=== PATIENT | male | born 1995 | race Caucasian/White ===

== ENCOUNTER 2018-09-17 11:20 | Emergency (ER) | payer MEDICAID, OTHER ==
[~2018-09-17] VITALS: Ht 177.8 cm; Wt 100.0 kg
[2018-09-17 12:44] LABS: BASOPHILS % (AUTO) 1.4 % (0.0-2.0); EOSINOPHILS % (AUTO) 1.8 % (1.0-6.0); HEMATOCRIT 47.3 % (41-53); HEMOGLOBIN 15.8 g/dL (13.5-17.5); LYMPHOCYTES # (AUTO) 1.5 K/uL (1.0-4.8); LYMPHOCYTES % (AUTO) 28.3 % (22.0-44.0); MEAN CORPUSCULAR HEMOGLOBIN 29.3 pg (26.0-34.0); MEAN CORPUSCULAR HGB CONC 33.4 G/dL (31.0-37.0); MEAN CORPUSCULAR VOLUME 88 fL (80-100); MONOCYTES # (AUTO) 0.3 K/uL (0.1-1.0); MONOCYTES % (AUTO) 6.2 % (2.0-9.0); NEUTROPHILS # (AUTO) 3.4 K/uL (1.8-7.7); NEUTROPHILS % (AUTO) 62.3 % (40.0-70.0); PLATELET COUNT (AUTO) 279 K/uL (150-450); RED BLOOD CELL COUNT(AUTO) 5.38 MIL/uL (4.50-5.90); RED CELL DISTRIBUTION WIDTH 13.5 % (11.5-14.5)
[2018-09-17 12:55] LABS: ANION GAP 7 mmol/L (8-16); CALCIUM, TOTAL 9.2 mg/dL (8.8-10.5); CARBON DIOXIDE 29 mmol/L (22-29); CHLORIDE 104 mmol/L (98-107); CREATININE 0.83 mg/dL (0.60-1.30); GLOMERULAR FILTR. RATE CALC > 60 mL/min (>60); GLUCOSE,RANDOM 106 mg/dL (70-110); POTASSIUM 4.3 mmol/L (3.5-5.1); SODIUM SERUM 140 mmol/L (136-145); UREA NITROGEN, BLOOD 10 mg/dL (7-18)
[2018-09-17 13:01] LABS: ALANINE AMINOTRANSFERASE 89 U/L (12-78); ALKALINE PHOSPHATASE 85 U/L (46-116); ASPARTATE AMINOTRANSFERASE 31 U/L (15-37); BILIRUBIN,TOTAL 0.4 mg/dL (0.1-1.0); LIPASE 87 U/L (73-393); TOTAL PROTEIN, SERUM 7.9 g/dL (6.4-8.2)
[2018-09-17] MEDS ORDERED: PB/HYOSCY/ATR/SCOP/LIDO/MAALOX 55 ML BOTTLE PO ONE (13:30)
[2018-09-17 14:28] VITALS: BP 127/71
== END 2018-09-17 14:30 | disposition home or self-care (01) ==
LOC: EMS 11:20
DX: R10.13 Epigastric pain (principal)

== ENCOUNTER 2023-05-17 10:12 | Emergency (ER) | payer OTHER ==
[~2023-05-17] VITALS: Ht 180.3 cm; Wt 113.6 kg
[2023-05-17 10:17] VITALS: BP 157/93; PULSE 99; RESP 16; TEMP 98.1
[2023-05-17] MEDS ORDERED: BACITRACIN 0.9 GM PACKET OINTMENT TP ONE (10:30)
[2023-05-17] MEDS ORDERED: LIDOCAINE 1% 10 ML VIAL SQ ONE (10:30)
[2023-05-17] MEDS ORDERED: ACETAMINOPHEN 500 MG TABLET PO ONE (10:30)
[2023-05-17] MEDS ORDERED: DOXYCYCLINE HYCLATE 100 MG TABLET PO ONE (10:30)
[2023-05-17] MEDS ORDERED: IBUP-1492 PO (10:51)
[2023-05-17] MEDS ORDERED: DOXY-354 PO (10:51)
== END 2023-05-17 11:16 | disposition home or self-care (01) ==
LOC: EMS 10:13
DX: L02.214 Cutaneous abscess of groin (principal)
CPT/HCPCS: 99284; 10060; J3490; 99283

== ENCOUNTER 2023-10-21 11:03 | Emergency (ER) | payer OTHER ==
[~2023-10-21] VITALS: Ht 180.3 cm; Wt 109.1 kg
[~2023-10-21 11:03] MED LIST: DOXY-354 PO; IBUP-1492 PO
[2023-10-21 11:07] VITALS: TEMP 98.3
[2023-10-21 11:34] LABS: BASOPHILS % (AUTO) 1.4 % (0.0-2.0); HEMATOCRIT 50.5 % (41-53); HEMOGLOBIN 16.9 g/dL (13.5-17.5); LYMPHOCYTES # (AUTO) 1.7 K/uL (1.0-4.8); LYMPHOCYTES % (AUTO) 23.6 % (22.0-44.0); MEAN CORPUSCULAR HEMOGLOBIN 30.9 pg (26.0-34.0); MEAN CORPUSCULAR HGB CONC 33.5 G/dL (31.0-37.0); MEAN CORPUSCULAR VOLUME 92 fL (80-100); MONOCYTES # (AUTO) 0.4 K/uL (0.1-1.0); MONOCYTES % (AUTO) 5.9 % (2.0-9.0); NEUTROPHILS # (AUTO) 4.8 K/uL (1.8-7.7); NEUTROPHILS % (AUTO) 67.1 % (40.0-70.0); PLATELET COUNT (AUTO) 367 K/uL (150-450); RED BLOOD CELL COUNT(AUTO) 5.47 MIL/uL (4.50-5.90); RED CELL DISTRIBUTION WIDTH 13.1 % (11.5-14.5); WHITE BLOOD COUNT (AUTO) 7.2 K/uL (4.5-11.0)
[2023-10-21 11:40] LABS: ANION GAP 6 mmol/L (8-16); CALCIUM, TOTAL 9.5 mg/dL (8.8-10.5); CARBON DIOXIDE 32 mmol/L (22-29); CHLORIDE 99 mmol/L (98-107); CREATININE 0.75 mg/dL (0.60-1.30); GLOMERULAR FILTR. RATE CALC > 60 mL/min (>60); GLUCOSE,RANDOM 101 mg/dL (70-110); POTASSIUM 3.9 mmol/L (3.5-5.1); SODIUM SERUM 136 mmol/L (136-145); UREA NITROGEN, BLOOD 9 mg/dL (7-18)
[2023-10-21] MEDS: ONDANSETRON HCL 4 MG/2 ML VIAL IVP ONE (12:22)
[2023-10-21] MEDS: SODIUM CHLORIDE 0.9% 1,000 ML IV ONE (12:22)
[2023-10-21 12:28] LABS: LIPASE 33 U/L (16-77)
[2023-10-21 13:15] VITALS: BP 132/76; PULSE 78; RESP 16
[2023-10-21] MEDS ORDERED: DICY-1 PO (13:59)
[2023-10-21] MEDS ORDERED: ONDA-104 PO (13:59)
[2023-10-21 14:04] LABS: APPEARANCE,URINE CLEAR (CLEAR); BILIRUBIN,URINE NEGATIVE (NEGATIVE); COLOR,URINE LIGHT YELLOW (YELLOW); GLUCOSE, URINE (UA) NEGATIVE (NEGATIVE); KETONES,URINE NEGATIVE (NEGATIVE); LEUKOCYTE ESTERASE ,URINE TRACE (NEGATIVE); NITRATE,URINE NEGATIVE (NEGATIVE); OCCULT BLOOD,URINE NEGATIVE (NEGATIVE); PROTEIN,URINE NEGATIVE (NEGATIVE); SPECIFIC GRAVITIY, URINE 1.015 (1.003-1.030); UROBILINOGEN,URINE <=1.0 mg/dL (<=1.0)
[2023-10-21 14:27] LABS: BACTERIA,URINE None Seen /HPF (None Seen); RBC,URINE None Seen /HPF (0-2); WBC,URINE 0-2 /HPF (0-5)
[2023-10-21] MEDS ORDERED: CEPH-558 PO (14:35)
[2023-10-21] MEDS: CEPHALEXIN MONOHYDRATE 500 MG CAPSULE PO ONE (14:53)
== END 2023-10-21 15:08 | disposition home or self-care (01) ==
LOC: EMS 11:03
DX: K52.9 Noninfective gastroenteritis and colitis, unspecified (principal); N39.0 Urinary tract infection, site not specified
CPT/HCPCS: 99283; 96374; 96361; 80048; 81001; 83690; 85025; 36415; J2405

== ENCOUNTER 2023-12-04 09:25 | Emergency (ER) | payer OTHER ==
[~2023-12-04] VITALS: Ht 180.3 cm; Wt 113.6 kg
[~2023-12-04 09:25] MED LIST changes: +CEPH-558 PO; +DICY-1 PO; -DOXY-354 PO; -IBUP-1492 PO; +ONDA-104 PO
[2023-12-04 09:31] VITALS: TEMP 98.1
[2023-12-04 11:15] VITALS: BP 138/86; PULSE 90; RESP 16
[2023-12-04] MEDS ORDERED: IBUP-1554 PO (11:42)
[2023-12-04] MEDS ORDERED: TRAM50TA5 PO (11:42)
== END 2023-12-04 11:49 | disposition home or self-care (01) ==
LOC: EMS 09:25
DX: S52.611A Displaced fracture of right ulna styloid process, initial encounter for closed fracture (principal); W19.XXXA Unspecified fall, initial encounter; Y93.89 Activity, other specified; Y92.89 Other specified places as the place of occurrence of the external cause; Y99.8 Other external cause status
CPT/HCPCS: 99284; 73090-TC; 73130-TC; Z7502

== ENCOUNTER 2023-12-11 13:17 | Emergency (ER) | payer OTHER ==
[~2023-12-11] VITALS: Ht 180.3 cm; Wt 81.8 kg
[~2023-12-11 13:17] MED LIST changes: +IBUP-1554 PO; +TRAM50TA5 PO
[2023-12-11 13:21] VITALS: TEMP 98
[2023-12-11 15:15] VITALS: BP 144/87; PULSE 81; RESP 17
== END 2023-12-11 16:14 | disposition home or self-care (01) ==
LOC: EMS 13:31
DX: S52.611A Displaced fracture of right ulna styloid process, initial encounter for closed fracture (principal); X58.XXXA Exposure to other specified factors, initial encounter; Y93.89 Activity, other specified; Y92.89 Other specified places as the place of occurrence of the external cause; Y99.8 Other external cause status
CPT/HCPCS: 99281; Z7502